=== PATIENT | female | born 1950 | race Caucasian/White ===

== ENCOUNTER 2017-04-25 12:56 | Emergency (ER) | payer MEDICARE, OTHER ==
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
== END 2017-04-25 14:10 | disposition home or self-care (01) ==
LOC: LB.ED 12:56
DX: S69.91XA Unspecified injury of right wrist, hand and finger(s), initial encounter (principal); W20.8XXA Other cause of strike by thrown, projected or falling object, initial encounter; Z79.899 Other long term (current) drug therapy
CPT/HCPCS: 29130; 99282; 99283-25